=== PATIENT | male | born 1990 | race Caucasian/White ===

== ENCOUNTER 2017-03-01 10:19 | Inpatient (IN) | payer OTHER ==
[~2017-03-01] VITALS: Ht 175.3 cm; Wt 74.8 kg
[~2017-03-01 10:19] MED LIST: LEVE500T13 PO
[2017-03-01] MEDS ORDERED: SODIUM CHLORIDE 0.9% 1000ML 1,000 ML IV STA ×2 (10:50)
[2017-03-01] MEDS ORDERED: LORAZEPAM 2 MG/ML 1 ML VIAL IV STA (10:50)
[2017-03-01] MEDS ORDERED: LEVETIRACETAM IV 1,000 MG in DEXTROSE 5% 100ML 100 ML IV STA (10:50)
--- NOTE | 2017-03-01 10:57 | EMERGENCY ROOM VISIT NOTE ---
History Report prepared by Maryann: Lubna Hoffman Under the Supervision of: Dr. Kevin Keita M.D. First contact with patient: 10:44 Chief Complaint: SEIZURE Stated Complaint: SEIZURE, POSSIBLE HEAD INJURY Nursing Triage Summary: Triage note: mother reports "he has a hx of seizures and had three this morning since 529 today two were in bed and one he was in the bathroom and he fell, i think something is wrong with his head he is not acting right." pt answering questions in triage but is slow to respond pt able to report name and where he is and why but is unable to report month or season pt reports "it' s summer i think i have no idea." pt speaks micronesian and yoruba and pt denies need for chemist. mother also denies need for chemist. History of Present Illness The patient is a 26 year old male who presents to the Emergency Room with complaints of three sudden seizures that occurred prior to arrival. He currently rates his discomfort as a 5/10 in severity. The patient notes that he has a history of seizures, noting that he takes two 500 mg of Keppra daily. He notes that he hit his head during one of the seizures. The patient's mother notes that the patient's seizures lasted 3 minutes each. The patient notes that he bit his tongue during the event, but denies any incontinence. The patient's mother states that the patient's last seizure was several months ago. The patient's mother notes that the patient follows with Dr. Hartmann of Neurology. She notes that the patient wasn't feeling well yesterday. The patient's mother notes that the patient was slow to respond yesterday and had complained of blurry vision. The patient's mother states that the patient did not take his Keppra this morning. Per records, the patient was started on Keppra in May 2016 for his seizures. The patient denies any other active medical problems. The patient believes that his tetanus status is up to date. The patient reports medication compliance. Source of History: patient, parent (mother), other (records) Onset: prior to arrival Position: other (global) Symptom Intensity: 5/10 Quality: other (seizures) Timing: other (three sudden) Note: Associated Symptoms: slow to respond yesterday, blurry vision Review of Systems See HPI for pertinent positives & negatives. A total of 10 systems reviewed and were otherwise negative. Past Medical & Surgical Medical Problems: (1) Hand laceration (2) Pneumothorax, closed, traumatic Family History Hypertension Social History Smoking Status: Never Smoker Alcohol Use: occasionally Drug Use: none Marital Status: single Housing Status: lives with family Current/Historical Medications Scheduled Levetiracetam (Keppra), 500 MG PO BID Allergies Coded Allergies: No Known Allergies (Unverified , 03/01/17) Physical Exam Vital Signs Date Time Temp Pulse Resp B/P Pulse Ox O2 Delivery O2 Flow Rate FiO2 03/01/17 12:03 84 15 138/69 99 Room Air 03/01/17 10:41 85 03/01/17 10:33 96 Room Air 03/01/17 10:33 85 16 143/85 97 Room Air 03/01/17 10:20 37.4 102 18 135/89 98 Room Air Physical Exam GENERAL: Patient is in no acute distress. HEENT: Mucous membranes are moist, abrasion to nasal bridge with subtle nasal deformity, abrasion to the left forehead, no scalp hematoma, pupils are equal and reactive to light. Bite to the right side of the tongue. NECK: No stridor, no adenopathy, no meningismus, trachea is midline. LUNGS: Clear to auscultation bilaterally, no wheeze, no rhonchi, breath sounds equal. HEART: Without murmurs gallops or rubs, regular rate and rhythm. ABDOMEN: Soft, nontender, bowel sounds positive, no hernias, no peritonitis. BACK: Abrasion to right thoracic back. EXTREMITIES: No cyanosis or edema, full range of motion of all the joints without pain or difficulty, no signs for acute trauma. NEUROLOGIC: Slow to respond, appears slightly confused, moving all extremities, awake and alert SKIN: No rash, no jaundice, no diaphoresis. Medical Decision & Procedures ER Provider Diagnostic Interpretation: X ray results and stated below per my interpretation and radiologist interpretation. Other radiology results and stated below per my review and radiologist interpretation: CT HEAD WITHOUT CONTRAST (CT) CLINICAL HISTORY: Seizure. Altered mental status. Head trauma. COMPARISON STUDY: 04/30/2011 TECHNIQUE: Axial CT of the brain is performed from the vertex to the skull base. IV contrast was not administered for this examination. CT DOSE: 729.78 mGycm FINDINGS: No intra or extra-axial mass lesions are visualized. There is no CT evidence of acute cortical infarction. There is no evidence of midline shift. There is no acute hemorrhage. No calvarial fractures are visualized. There is left frontal scalp edema. There is no evidence of pathologic ventricular dilatation. There is a very subtle linear white matter hypodensity with thin the right parietal white matter. This is not felt to be acute and likely relates to an old insult There is no evidence of acute sinusitis. There is an age-indeterminate left nasal bone deformity. IMPRESSION: 1. Left frontal scalp edema 2. Age-indeterminate left nasal bone deformity 3. No evidence of acute intracranial injury Electronically signed by: Kevin Lagos M.D. 03/01/2017 12:04 PM Dictated Date/Time: 03/01/2017 12:01 PM CHEST ONE VIEW PORTABLE HISTORY: EVALUATE ALTERED MENTAL STATUS/WEAKNESS COMPARISON: Chest 05/08/2011. FINDINGS: The lungs are clear. Cardiac silhouette is normal in size. No pleural effusions. No pneumothorax. IMPRESSION: No acute process. Electronically signed by: Shimon Monroe M.D. 03/01/2017 11:16 AM Dictated Date/Time: 03/01/2017 11:[address] SCAN OF THE FACIAL BONES WITHOUT IV CONTRAST CLINICAL HISTORY: Trauma. Left facial bruising. COMPARISON STUDY: CT of the brain performed concurrently on 03/01/2017. TECHNIQUE: High-resolution CT scan of the facial bones is performed. Images are reviewed in the axial, sagittal, and coronal planes. IV contrast was not administered for this examination. CT DOSE: 589.43 mGycm FINDINGS: The skeletal structures are well mineralized. There is no evidence of facial bone fracture. The bony orbits are intact and the orbital contents are within normal limits. The zygomatic arches, nasal bones, and pterygoid plates are preserved. The maxilla and mandible are intact. There are no layering blood products within the paranasal sinuses. The sinuses and mastoids are clear. The visualized calvarium and upper cervical spine are maintained. Partially imaged brain parenchyma is within normal limits. There are large dental caries identified involving the right mandibular molars. Smaller caries are seen involving left mandibular molars and the right lateral mandibular incisor. There are large caries identified involving the bilateral maxillary molars. There is a left frontal and left periorbital scalp contusion. IMPRESSION: 1. There is no evidence of facial bone fracture. 2. Left frontal/periorbital scalp contusion. 3. There are numerous maxillary and mandibular dental caries. Follow-up with dentistry is recommended. Electronically signed by: Kevin Waldron M.D. 03/01/2017 12:12 PM Dictated Date/Time: 03/01/2017 12:06 PM Laboratory Results 03/01/17 10:50 Red Blood Count 4.79, Mean Corpuscular Volume 91.6, Mean Corpuscular Hemoglobin 31.1, Mean Corpuscular Hemoglobin Concent 33.9, Mean Platelet Volume 9.4, Neutrophils (%) (Auto) 88.5, Lymphocytes (%) (Auto) 3.8, Monocytes (%) (Auto) 7.5, Eosinophils (%) (Auto) 0.0, Basophils (%) (Auto) 0.0, Neutrophils # (Auto) 10.60, Lymphocytes # (Auto) 0.45, Monocytes # (Auto) 0.90, Eosinophils # (Auto) 0.00, Basophils # (Auto) 0.00 03/01/17 10:50 Test 03/01/17 10:50 White Blood Count 11.97 K/uL (4.8-10.8) Red Blood Count 4.79 M/uL (4.7-6.1) Hemoglobin 14.9 g/dL (14.0-18.0) Hematocrit 43.9 % (42-52) Mean Corpuscular Volume 91.6 fL (80-100) Mean Corpuscular Hemoglobin 31.1 pg (25-34) Mean Corpuscular Hemoglobin Concent 33.9 g/dl (32-36) Platelet Count 202 K/uL (130-400) Mean Platelet Volume 9.4 fL (7.4-10.4) Neutrophils (%) (Auto) 88.5 % Lymphocytes (%) (Auto) 3.8 % Monocytes (%) (Auto) 7.5 % Eosinophils (%) (Auto) 0.0 % Basophils (%) (Auto) 0.0 % Neutrophils # (Auto) 10.60 K/uL (1.4-6.5) Lymphocytes # (Auto) 0.45 K/uL (1.2-3.4) Monocytes # (Auto) 0.90 K/uL (0.11-0.59) Eosinophils # (Auto) 0.00 K/uL (0-0.5) Basophils # (Auto) 0.00 K/uL (0-0.2) RDW Standard Deviation 45.4 fL (36.4-46.3) RDW Coefficient of Variation 13.6 % (11.5-14.5) Immature Granulocyte % (Auto) 0.2 % Immature Granulocyte # (Auto) 0.02 K/uL (0.00-0.02) Anion Gap 8.0 mmol/L (3-11) Est Creatinine Clear Calc Drug Dose 103.6 ml/min Estimated GFR () 108.3 Estimated GFR (Non- 93.5 BUN/Creatinine Ratio 12.8 (10-20) Calcium Level 8.5 mg/dl (8.5-10.1) Total Bilirubin 1.2 mg/dl (0.2-1) Aspartate Amino Transf (AST/SGOT) 34 U/L (15-37) Alanine Aminotransferase (ALT/SGPT) 35 U/L (12-78) Alkaline Phosphatase 75 U/L (45-117) Total Creatine Kinase 782 U/L (39-308) Total Protein 8.1 gm/dl (6.4-8.2) Albumin 4.4 gm/dl (3.4-5.0) Globulin 3.7 gm/dl (2.5-4.0) Albumin/Globulin Ratio 1.2 (0.9-2) Thyroid Stimulating Hormone (TSH) 1.900 uIu/ml (0.300-4.500) Laboratory results reviewed by me. Medications Administered Medications (Trade) Dose Ordered Sig/Bobbi Route Start Time Stop Time Status Last Admin Dose Admin Sodium Chloride 1,000 ml @ 999 mls/hr Q1H1M STAT IV 03/01/17 10:50 03/01/17 11:50 DC 03/01/17 11:04 999 MLS/HR Sodium Chloride (Nss 1000ml) 1,000 ml @ 200 mls/hr Q5H STAT IV 03/01/17 10:50 03/01/17 14:50 DC 03/01/17 12:05 200 MLS/HR Lorazepam 1 mg 1 mg NOW STAT IV 03/01/17 10:50 03/01/17 10:54 DC 03/01/17 10:59 1 MG Levetiracetam/ Dextrose (Keppra Iv/D5 100ml) 110 ml @ 420 mls/hr NOW STAT IV 03/01/17 10:50 03/01/17 11:05 DC 03/01/17 11:04 420 MLS/HR ECG Indication: other (seizure) Rate (beats per minute): 93 Rhythm: normal sinus Findings: no acute ischemic change, no ectopy ED Course 1044: The patient was evaluated in room C9. A complete history and physical exam was performed. 1050: Ordered Levetiracetam 1000 mg/Dextrose 110 ml @ 420 mls/hr IV, Ativan Inj 1 mg IV, Sodium Chloride 1000 ml @ 200 mls/hr IV, Sodium Chloride 1000 ml @ 999 mls/hr IV. 1230: I discussed the patients case with Dr. Hartmann, Neurology. He states that if the patient has a negative work up and back to baseline, he can go home and follow up in the office. He states that if the patient is still not back to baseline, then he should be evaluated in the hospital further. 1244: I reevaluated the patient and he is sleepy. I talked with his mother and she is going to talk to the patient and see if he is back to baseline yet. 1321: I reevaluated the patient and he is still not back to baseline. I discussed all the exam findings with him and his mother and I discussed the treatment plan. They verbalized complete understanding and agreement. The patient will be evaluated for further treatment. 1323: I discussed the patients case with Dr. Godinez, [facility] [place], [place]. He is going to evaluate the patient for further treatment. Medical Decision The patient is a 26 year old male who presents to the ED with complaints of a seizure. Differential diagnoses considered include Low Keppra level, medication noncompliance, facial or skull fracture, intracranial bleeding, infection, electrolyte imbalance, dehydration. There is a mild leukocytosis which could be consistent with infection or just the seizure activity itself. No concerning anemia. No significant electrolyte abnormality, kidney failure or hepatitis. The patient appears to be in a euthyroid state. Urine tox shows methadone and marijuana. Keppra level is of course still pending. Brain CT shows no acute bleed or mass effect. Facial CT does not show any worrisome facial fracture, a potential subtle acute or subacute injury/fracture to the nose was suggested. Chest x-ray does not show pneumonia or mediastinal widening. Urinalysis shows dehydration, no obvious infection. The patient received IV saline, IV Ativan and IV Keppra. He has done well but he is still slightly confused and I do not think stable for discharge home. I discussed the case with Dr. Hartmann of neurology. Since the patient is still somewhat confused, he will be brought into the hospital for further care. I am concerned about medication noncompliance with this patient. Consults Time Called: 1225 Consulting Physician: Dr. Hartmann, Neurology Returned Call: 1230 I discussed the patients case with Dr. Hartmann, Neurology. He states that if the patient has a negative work up and back to baseline, he can go home and follow up in the office. He states that if the patient is still not back to baseline, then he should be evaluated in the hospital further. Additional Consults: Time Called: 1321 Consulted Physician: FARTUN Dee Returned Call: 132 Additional Comments: I discussed the patients case with FARTUN Dee. He is going to evaluate the patient for further treatment. Impression Primary Impression: Seizure Additional Impression: Head trauma Scribe Attestation The scribe's documentation has been prepared under my direction and personally reviewed by me in its entirety. I confirm that the note above accurately reflects all work, treatment, procedures, and medical decision making performed by me. Departure Information Dispostion Being Evaluated By Hospitalist Referrals No Doctor, Assigned (PCP) Problem Qualifiers
[2017-03-01] MEDS ORDERED: LEVE500T13 PO (11:01)
[2017-03-01 11:02] LABS: COMPLETE YES; HEMATOCRIT 43.9 % (42-52); IG% 0.2 %; LYMPH % 3.8 %; LYMPH ABS # 0.45 K/uL (1.2-3.4); MEAN CELL VOLUME 91.6 fL (80-100); MEAN CORPUSCULAR HEMOGLOBIN 31.1 pg (25-34); MEAN CORPUSCULAR HGB CONC 33.9 g/dl (32-36); MEAN PLATELET VOLUME 9.4 fL (7.4-10.4); MONO % 7.5 %; NEUT % 88.5 %; PLATELET COUNT 202 K/uL (130-400); RED BLOOD COUNT 4.79 M/uL (4.7-6.1); WHITE BLOOD COUNT 11.97 K/uL (4.8-10.8)
--- NOTE | 2017-03-01 11:18 | DIAGNOSTIC IMAGING REPORT ---
CHEST ONE VIEW PORTABLE HISTORY: EVALUATE ALTERED MENTAL STATUS/WEAKNESS COMPARISON: Chest 05/08/2011. FINDINGS: The lungs are clear. Cardiac silhouette is normal in size. No pleural effusions. No pneumothorax. IMPRESSION: No acute process. Electronically signed by: Shimon Monroe M.D. 03/01/2017 11:16 AM Dictated Date/Time: 03/01/2017 11:12 AM
[2017-03-01 11:27] LABS: ALB/GLOB RATIO 1.2 (0.9-2); BUN/CREATININE RATIO 12.8 (10-20); CALCIUM 8.5 mg/dl (8.5-10.1); CREATININE 1.1 mg/dl (0.60-1.40); POTASSIUM 4.3 mmol/L (3.5-5.1)
[2017-03-01 11:32] LABS: THYROID STIMULATING HORMONE 1.9 uIu/ml (0.300-4.500)
--- NOTE | 2017-03-01 12:06 | DIAGNOSTIC IMAGING REPORT ---
CT HEAD WITHOUT CONTRAST (CT) CLINICAL HISTORY: Seizure. Altered mental status. Head trauma. COMPARISON STUDY: 04/30/2011 TECHNIQUE: Axial CT of the brain is performed from the vertex to the skull base. IV contrast was not administered for this examination. CT DOSE: 729.78 mGycm FINDINGS: No intra or extra-axial mass lesions are visualized. There is no CT evidence of acute cortical infarction. There is no evidence of midline shift. There is no acute hemorrhage. No calvarial fractures are visualized. There is left frontal scalp edema. There is no evidence of pathologic ventricular dilatation. There is a very subtle linear white matter hypodensity with thin the right parietal white matter. This is not felt to be acute and likely relates to an old insult There is no evidence of acute sinusitis. There is an age-indeterminate left nasal bone deformity. IMPRESSION: 1. Left frontal scalp edema 2. Age-indeterminate left nasal bone deformity 3. No evidence of acute intracranial injury Electronically signed by: Kevin Lagos M.D. 03/01/2017 12:04 PM Dictated Date/Time: 03/01/2017 12:01 PM
--- NOTE | 2017-03-01 12:14 | DIAGNOSTIC IMAGING REPORT ---
CT SCAN OF THE FACIAL BONES WITHOUT IV CONTRAST CLINICAL HISTORY: Trauma. Left facial bruising. COMPARISON STUDY: CT of the brain performed concurrently on 03/01/2017. TECHNIQUE: High-resolution CT scan of the facial bones is performed. Images are reviewed in the axial, sagittal, and coronal planes. IV contrast was not administered for this examination. CT DOSE: 589.43 mGycm FINDINGS: The skeletal structures are well mineralized. There is no evidence of facial bone fracture. The bony orbits are intact and the orbital contents are within normal limits. The zygomatic arches, nasal bones, and pterygoid plates are preserved. The maxilla and mandible are intact. There are no layering blood products within the paranasal sinuses. The sinuses and mastoids are clear. The visualized calvarium and upper cervical spine are maintained. Partially imaged brain parenchyma is within normal limits. There are large dental caries identified involving the right mandibular molars. Smaller caries are seen involving left mandibular molars and the right lateral mandibular incisor. There are large caries identified involving the bilateral maxillary molars. There is a left frontal and left periorbital scalp contusion. IMPRESSION: 1. There is no evidence of facial bone fracture. 2. Left frontal/periorbital scalp contusion. 3. There are numerous maxillary and mandibular dental caries. Follow-up with dentistry is recommended. Electronically signed by: Kevin Waldron M.D. 03/01/2017 12:12 PM Dictated Date/Time: 03/01/2017 12:06 PM
[2017-03-01 13:45] VITALS: O2SAT 95; Ht 175.3 cm; Wt 74.8 kg
[2017-03-01] MEDS ORDERED: ACETAMINOPHEN 325 MG TAB PO PRN (13:45)
[2017-03-01] MEDS ORDERED: ONDANSETRON INJ 2 MG/ML 2 ML VIAL IV PRN (13:45)
[2017-03-01] MEDS ORDERED: LORAZEPAM 2 MG/ML 1 ML VIAL IV PRN (13:45)
[2017-03-01] MEDS ORDERED: LORAZEPAM INJ 1 MG in SYRINGE 0.5 ML IV PRN (14:00)
--- NOTE | 2017-03-01 14:13 | History and Physical ---
History & Physical Date & Time of Service: Mar 01, 2017 at 13:58 Chief Complaint: Seizure, Possible Head Injury Primary Care Physician: No Doctor, Assigned History of Present Illness Source: patient, family, hospital records 26 yo male with history of epilepsy for several years, presents to the ED today after having three successive seizures at home with injury to his chest and face from falling. The first seizure occurred when he woke up and then he had a second seizure that his mom believe lasted 15 minutes before stopping. He had a third seizure while in the bathroom and fell forward and struck his face/ nose. He was brought to the ED and given Ativan IV, has not had a seizure since coming to the ED. Asked patient if he had any warning signs of seizure and he denied. He went to bed around 1am, did not have any sleep deprivation. No drugs. No recent infections. There has been some confusion about his dose of Keppra. The patient and the patient's mother say that they saw the PA at the neurologist office and they were told that he should take Keppra 500mg, can take either at night or morning , as long as he was taking. Patient's memory is not great after having seizures but he says he has been taking the Keppra. Review of outpatient notes shows that he did she Brittany Case PA with neurology on January 14, he was having issues with non-compliance at that time. Was prescribed Keppra ER 500mg and told to take two tablets in the morning. Suspect that patient continues to be non-compliant. Keppra level sent off but is a reference lab. Past Medical/Surgical History Epilepsy - started several years ago Family History Hypertension Social History Smoking Status: Never Smoker Drug Use: none Marital Status: single Multi-Drug Resistant Organisms History of MDRO: No Allergies Coded Allergies: No Known Allergies (Unverified , 03/01/17) Home Medications Scheduled Levetiracetam (Keppra), 500 MG PO BID Review of Systems Constitutional: No chills, No fatigue, No fever, No problem reported, No sweats , No weakness, No weight loss Eyes: No diplopia, No discharge, No eye pain, No problem reported, No redness, No worsening of vision ENT: + problem reported (nasal bone pain), No dental problems, No hearing loss , No nasal symptoms, No sore throat, No tinnitus, No trouble swallowing, No unusual epistaxis Respiratory: No cough, No dyspnea at rest, No dyspnea on exertion, No hemoptysis, No problem reported, No shortness of breath, No sputum, No wheezing Cardiovascular: + chest pain (from fall), No PND, No claudication, No edema, No orthopnea, No palpitations, No problem reported Abdomen: No GI bleeding, No constipation, No diarrhea, No nausea, No pain, No problem reported, No vomiting Musculoskeletal: + muscle pain (generalized, from seizures), No joint pain, No swelling Genitourinary - Male: No dysuria, No hematuria, No urinary frequency, No urinary urgency Neurologic: + memory loss (surrounding time of seizures), + problem reported ( three seizures this AM), + weakness (diffuse, post ictal), No balance problems, No numbness/tingling, No paralysis, No vertigo Psychiatric: No anhedonism, No anxiety, No depression symptoms, No insomnia, No problem reported, No substance abuse Endocrine: No excessive thirst, No excessive urination, No fatigue, No problem reported Hematologic / Lymphatic: No abnormal bleeding/bruising, No clotting problems, No night sweats, No problem reported, No swollen lymph nodes Integumentary: No bleeding, No color change, No itch, No new/changing skin lesions, No problem reported, No rash Allergic / Immunologic: No environmental allergies, No food allergies, No frequent infections, No hives, No pet sensitivities, No poor healing, No problem reported, No prolonged convalescence, No seasonal allergies Physical Exam Vital Signs Date Time Temp Pulse Resp B/P Pulse Ox O2 Delivery O2 Flow Rate FiO2 03/01/17 13:40 98 22 125/69 95 Room Air 03/01/17 12:03 84 15 138/69 99 Room Air 03/01/17 10:41 85 03/01/17 10:33 96 Room Air 03/01/17 10:33 85 16 143/85 97 Room Air 03/01/17 10:20 37.4 102 18 135/89 98 Room Air General Appearance: WD/WN, no apparent distress Head: normocephalic, + evidence of trama (nasal bones and left forehead laceration/abrasion) Eyes: normal inspection, EOMI, sclerae normal, + pertinent finding (pupils dilated, minimall reactive) ENT: hearing grossly normal, TMs normal, pharynx normal, + pertinent finding ( nasal bones tender, bruised) Neck: supple, no adenopathy, no JVD, trachea midline Respiratory/Chest: chest non-tender, lungs clear, normal breath sounds, no respiratory distress, no accessory muscle use Cardiovascular: regular rate, rhythm, no edema, no gallop, no JVD, no murmur, normal peripheral pulses Abdomen/GI: normal bowel sounds, non tender, soft, no organomegaly Back: normal inspection, no CVA tenderness, no muscle spasm, normal range of motion Extremities/Musculoskelatal: normal inspection, no calf tenderness, normal capillary refill, no pedal edema, normal range of motion Neurologic/Psych: flux tube attendant II-XII nml as tested, no motor/sensory deficits, alert, normal reflexes, oriented x 3, + pertinent finding (lethargic but wakes up to answer questions appropriately) Skin: normal color, warm/dry, no rash Diagnostics Laboratory Results Results Past 24 Hours Test 03/01/17 10:50 Range/Units White Blood Count 11.97 4.8-10.8 K/uL Red Blood Count 4.79 4.7-6.1 M/uL Hemoglobin 14.9 14.0-18.0 g/dL Hematocrit 43.9 42-52 % Mean Corpuscular Volume 91.6 80-100 fL Mean Corpuscular Hemoglobin 31.1 25-34 pg Mean Corpuscular Hemoglobin Concent 33.9 32-36 g/dl Platelet Count 202 130-400 K/uL Mean Platelet Volume 9.4 7.4-10.4 fL Neutrophils (%) (Auto) 88.5 % Lymphocytes (%) (Auto) 3.8 % Monocytes (%) (Auto) 7.5 % Eosinophils (%) (Auto) 0.0 % Basophils (%) (Auto) 0.0 % Neutrophils # (Auto) 10.60 1.4-6.5 K/uL Lymphocytes # (Auto) 0.45 1.2-3.4 K/uL Monocytes # (Auto) 0.90 0.11-0.59 K/uL Eosinophils # (Auto) 0.00 0-0.5 K/uL Basophils # (Auto) 0.00 0-0.2 K/uL RDW Standard Deviation 45.4 36.4-46.3 fL RDW Coefficient of Variation 13.6 11.5-14.5 % Immature Granulocyte % (Auto) 0.2 % Immature Granulocyte # (Auto) 0.02 0.00-0.02 K/uL Sodium Level 139 136-145 mmol/L Potassium Level 4.3 3.5-5.1 mmol/L Chloride Level 105 98-107 mmol/L Carbon Dioxide Level 26 21-32 mmol/L Anion Gap 8.0 3-11 mmol/L Blood Urea Nitrogen 14 7-18 mg/dl Creatinine 1.10 0.60-1.40 mg/dl Est Creatinine Clear Calc Drug Dose 103.6 ml/min Estimated GFR () 108.3 Estimated GFR (Non- 93.5 BUN/Creatinine Ratio 12.8 10-20 Random Glucose 82 70-99 mg/dl Calcium Level 8.5 8.5-10.1 mg/dl Total Bilirubin 1.2 0.2-1 mg/dl Aspartate Amino Transf (AST/SGOT) 34 15-37 U/L Alanine Aminotransferase (ALT/SGPT) 35 12-78 U/L Alkaline Phosphatase 75 45-117 U/L Total Creatine Kinase 782 39-308 U/L Total Protein 8.1 6.4-8.2 gm/dl Albumin 4.4 3.4-5.0 gm/dl Globulin 3.7 2.5-4.0 gm/dl Albumin/Globulin Ratio 1.2 0.9-2 Thyroid Stimulating Hormone (TSH) 1.900 0.300-4.500 uIu/ml Microbiology Results 03/01/17 Blood Culture, Received Pending 03/01/17 Blood Culture, Received Pending Diagnostic Radiology CT head IMPRESSION: 1. Left frontal scalp edema 2. Age-indeterminate left nasal bone deformity 3. No evidence of acute intracranial injury CT facial bones IMPRESSION: 1. There is no evidence of facial bone fracture. 2. Left frontal/periorbital scalp contusion. 3. There are numerous maxillary and mandibular dental caries. Follow-up with dentistry is recommended. CXR normal Impression Assessment and Plan 26 yo male with history of epilepsy, presents after having three seizures this AM, h/o non-compliance on Keppra - Epilepsy with seizures: likely caused by poor compliance with Keppra, supposed to be on Keppra ER 1000mg daily no seizures here in the ED after Ativan given will place on Keppra 1000mg IV BID, send off Keppra leval, Ativan 1mg IV PRN seizure activity seizure precautions consult Dr. Hartmann CK up at 700 due to seizures facial bone fracture, small, non-displaced normal electrolytes, no signs of infection, denies drug use, no sleep deprivation - DVT prophylaxis: Lovenox Level of Care Med/Surg VTE Prophylaxis VTE Risk Assessment Done? Y/N: Yes Risk Level: Low Given or contraindicated: Enoxaparin (Lovenox)SQ Additional Copies To Noel, Brittany Sethi
[2017-03-01 14:42] LABS: URINE APPEARANCE CLEAR (CLEAR); URINE BILIRUBIN NEG (NEG); URINE COLOR YELLOW; URINE NITRITE NEG (NEG); UROBILINOGEN NEG (NEG); ZZUR CULT IF INDIC CLEAN CATCH NO
[2017-03-01 14:44] VITALS: BP 125/69; PULSE 90; TEMP 37.2; O2SAT 97
[2017-03-01 14:53] LABS: MANUAL MICROSCOPIC REQUIRED? NO; REVIEW REQ? NO
[2017-03-01 15:21] LABS: BENZODIAZEPINE, URINE NEG (NEG); COCAINE,URINE NEG (NEG); PHENCYCLIDINE, URINE NEG (NEG)
[2017-03-01] MEDS: LEVETIRACETAM IV 1,000 MG in DEXTROSE 5% 100ML 100 ML IV SCH (20:10)
[2017-03-01 23:59] VITALS: BP 114/72; PULSE 97; TEMP 36.7; O2SAT 98
[2017-03-02 07:26] VITALS: BP 121/68; PULSE 65; TEMP 36.8; O2SAT 96
[2017-03-02] MEDS ORDERED: ENOXAPARIN 40 MG/0.4 ML SYR SQ SCH (08:00)
[2017-03-02] MEDS: LEVETIRACETAM IV 1,000 MG in DEXTROSE 5% 100ML 100 ML IV SCH (08:05)
--- NOTE | 2017-03-02 11:21 | Neurology Consultation ---
Neurology Consultation Date of Consultation: Mar 02, 2017. Attending Physician: Andrea Godinez D.O. Primary Care Physician: No Doctor, Assigned Reason for Consultation: Patient is a 26-year-old was asked to see the request of Dr. Godinez for neurologic consultation regarding seizures History of Present Illness Source: patient, caregiver, clinic records, hospital records Patient started getting seizures in 2007. He did not have developmental delays , head trauma or meningitis or seizures as an infant or child. He's had intermittent seizures ever since. He has had multiple seizure types over the years. Sometimes he has right-sided numbness and other symptomatology with good recall and no alteration in consciousness or responsiveness. Other times he can have right-sided symptoms with unresponsiveness and chewing movements of the mouth. Finally, he can have generalized tonic-clonic events. All of these last 30 seconds to a minute and he can have some post event confusion. Patient was first seen by Dr. Hartmann in January 2014. He had an MRI of the brain with and without contrast which was unremarkable. An EEG showed some left-sided /parietal slowing of a nonspecific nature and no potentially epileptogenic activity. He was put on Keppra at that time. Patient saw Dr. Gary Sesay, epileptic I'll just at [facility], in May 2014. At that time, he underwent a 3T MRI of the brain with and without contrast which was unremarkable. He had no underlying temporal lobe or other abnormalities. A 24-hour ambulatory EEG was unremarkable as well, although he did not have any spells during that time. They recommended 1250 mg of Keppra twice a day. Over the years, the patient has been extremely noncompliant with taking medication. In addition, he consumes alcohol intermittently and regularly as well as drug use. There is a note in the chart that over 1000 mg a day he can have side effects to Keppra, but the patient cannot remember this nor can he be very specific. He continues to have occasional breakthrough seizures, less so when he takes the medication regularly. He was last seen in neurology clinic in January 2017. Just had a generalized tonic-clonic seizure. On March 01, the patient woke up feeling fine but had 3 separate seizures lasting 3 minutes each. On the second one he had hit his left forehead and bit his tongue. There is no incontinence of urine. He arrived in the emergency room on March 01 at 1020 hours with a temperature 37.4, pulse 102, respiratory rate 18, blood pressure 135, and O2 saturation 98% . He was described in the emergency room is somewhat slow and perhaps confused. He had no focal neurologic deficits otherwise. CT scan of the head showed left frontal scalp edema with no intracranial problems. Chest x-ray was unremarkable. CT scan of the facial bones showed no fracture. Chem profile, CBC, TSH were unremarkable. Urinalysis reveals positive methadone and marijuana. The patient states he took liquid methadone earlier in the week and occasionally obtains and takes methadone pills. Currently, the patient feels back to normal with no headache, neck pain, pain, weakness, or numbness in the limbs, vision problems, confusion, or balance issues. His tongue hurts from where he put it on the left side. Nursing reports no seizures since admission. Past Medical/Surgical History Medical Problems: (1) Encounter for removal of sutures Status: Acute (2) Head trauma Status: Acute (3) Seizure Status: Acute (4) Seizure disorder Status: Acute Patient has no history of heart disease, hypertension, diabetes, asthma, or ulcer disease. He reports no surgical history but may of had his wisdom teeth removed (he is not sure) Family History Mother, age 49, has no significant medical problems. Father in his 30s after being hit by a car Social History Patient has never smoked cigarettes. He chews tobacco, at a rate of a can about every 4 days. He will have about 3 drinks of alcohol per week. His drug use as noted above. 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 Smoking Status: Never smoker Smokeless Tobacco Use: Yes Alcohol Use: occasionally Drug Use: marijuana, other Marital Status: single Housing Status: lives with family Occupation Status: employed Allergies Coded Allergies: No Known Allergies (Unverified , 03/01/17) Current Inpatient Medications Current Inpatient Medications Medications (Trade) Dose Ordered Sig/Bobbi Route Start Time Stop Time Status Last Admin Dose Admin Acetaminophen (Tylenol Tab) 650 mg Q4H PRN PO 03/01/17 13:45 03/31/17 13:44 Ondansetron HCl 4 mg 4 mg Q6H PRN IV 03/01/17 13:45 03/31/17 13:44 Levetiracetam/ Dextrose (Keppra Iv/D5 100ml) 110 ml @ 440 mls/hr BID IV 03/01/17 20:00 03/31/17 20:59 03/02/17 08:05 440 MLS/HR Lorazepam 1 mg 1 mg Q2H PRN IV 03/01/17 13:45 03/31/17 13:44 Lorazepam/Syringe (Ativan Inj/ Syringe) 1 ml @ 1 mls/min Q2H PRN IV 03/01/17 14:00 03/31/17 13:59 Enoxaparin Sodium (Lovenox Inj) 40 mg QAM SQ 03/02/17 08:00 04/01/17 08:59 Review of Systems Constitutional: No fatigue, No weakness Eyes: No diplopia, No worsening of vision ENT: No hearing loss, No tinnitus Respiratory: No cough, No shortness of breath Cardiovascular: No chest pain, No palpitations Abdomen: No nausea, No pain Musculoskeletal: No joint pain, No muscle pain Genitourinary - Male: No dysuria, No urinary incontinence Neurologic: No memory loss, No numbness/tingling, No weakness Psychiatric: No anxiety, No depression symptoms Endocrine: No fatigue Hematologic / Lymphatic: No abnormal bleeding/bruising Integumentary: No rash Allergic / Immunologic: No hives Physical Exam Vital Signs (Past 24 Hrs): Date Time Temp Pulse Resp B/P Pulse Ox O2 Delivery O2 Flow Rate FiO2 03/02/17 08:00 Room Air 03/02/17 07:26 36.8 65 18 121/68 96 Room Air 03/02/17 00:00 Room Air 03/01/17 23:59 36.7 97 20 114/72 98 Room Air 03/01/17 16:20 Room Air 03/01/17 14:44 37.2 90 18 125/69 97 Room Air 03/01/17 13:45 95 Room Air 03/01/17 13:40 98 22 125/69 95 Room Air 03/01/17 12:03 84 15 138/69 99 Room Air Patient is right-handed. The patient is awake and alert. Speech is normal without aphasia or dysarthria. Mentation and thought processes are intact with orientation and normal fund of knowledge. Mood and affect are normal and appropriate. Appearance and grooming are normal. The discs are sharp with positive venous pulsations. Pupils are 4mm bilaterally and reactive to light. Extraocular eye muscles are intact without nystagmus. Visual acuity and visual hernandez seem normal grossly to confrontation. There are no deficits to sensation of the face bilaterally. Corneal reflexes are positive bilaterally. Facial strength and symmetry is normal bilaterally. Hearing seems intact grossly to voice and finger rub. Palate moves well without asymmetry. There is normal sternocleidomastoid and trapezius strength bilaterally. Tongue is midline with good strength bilaterally. Neck is with full range of motion without discomfort. There are no cervical bruits. There are no cranial or ocular bruits. Heart is without murmur. Cervical, thoracic, and lumbar spine are nontender to palpation. Gait is normal. There is good are swing, turn, stance, and balance. Stance is normal eyes open or closed. With outstretched arms there is no drift. There are no resting, postural, or action tremors. There is no ataxia with [id number] testing. There is good facility in the hands. There are no abnormal involuntary movements noted. Motor strength is 5/5 diffusely in the arms bilaterally including deltoids, biceps, brachioradialis, wrist flexors and extensors, hand loom weaver, and intrinsic hand muscles. Motor strength is 5/5 diffusely in the legs bilaterally including hip flexors, quadriceps, hamstring, gastrocnemius, tibialis anterior, tibialis posterior, and peroneii muscles bilaterally. Toe extensors are normal and there is good bulk in the extensor digitorum brevis muscle bilaterally. The limbs have good tone without rigidity or spasticity, and there is no atrophy noted. Muscle bulk is normal, there is no tenderness, no myotonia noted to percussion, and no fasciculations seen. Sensory examination is intact to pin and touch throughout all four limbs. Reflexes are 1/4 in the biceps, triceps, brachioradialis, quadriceps, and Achilles tendons bilaterally. Toes are downgoing with plantar stimulation bilaterally. Peripheral pulses are present and of normal quality distally in all four limbs. There is no peripheral edema noted. Laboratory Results Past 24 Hours: 03/01/17 10:50 Red Blood Count 4.79, Mean Corpuscular Volume 91.6, Mean Corpuscular Hemoglobin 31.1, Mean Corpuscular Hemoglobin Concent 33.9, Mean Platelet Volume 9.4, Neutrophils (%) (Auto) 88.5, Lymphocytes (%) (Auto) 3.8, Monocytes (%) (Auto) 7.5, Eosinophils (%) (Auto) 0.0, Basophils (%) (Auto) 0.0, Neutrophils # (Auto) 10.60, Lymphocytes # (Auto) 0.45, Monocytes # (Auto) 0.90, Eosinophils # (Auto) 0.00, Basophils # (Auto) 0.00 03/01/17 10:50 Test 03/01/17 10:50 03/01/17 14:05 White Blood Count 11.97 K/uL (4.8-10.8) Red Blood Count 4.79 M/uL (4.7-6.1) Hemoglobin 14.9 g/dL (14.0-18.0) Hematocrit 43.9 % (42-52) Mean Corpuscular Volume 91.6 fL (80-100) Mean Corpuscular Hemoglobin 31.1 pg (25-34) Mean Corpuscular Hemoglobin Concent 33.9 g/dl (32-36) Platelet Count 202 K/uL (130-400) Mean Platelet Volume 9.4 fL (7.4-10.4) Neutrophils (%) (Auto) 88.5 % Lymphocytes (%) (Auto) 3.8 % Monocytes (%) (Auto) 7.5 % Eosinophils (%) (Auto) 0.0 % Basophils (%) (Auto) 0.0 % Neutrophils # (Auto) 10.60 K/uL (1.4-6.5) Lymphocytes # (Auto) 0.45 K/uL (1.2-3.4) Monocytes # (Auto) 0.90 K/uL (0.11-0.59) Eosinophils # (Auto) 0.00 K/uL (0-0.5) Basophils # (Auto) 0.00 K/uL (0-0.2) RDW Standard Deviation 45.4 fL (36.4-46.3) RDW Coefficient of Variation 13.6 % (11.5-14.5) Immature Granulocyte % (Auto) 0.2 % Immature Granulocyte # (Auto) 0.02 K/uL (0.00-0.02) Anion Gap 8.0 mmol/L (3-11) Est Creatinine Clear Calc Drug Dose 103.6 ml/min Estimated GFR () 108.3 Estimated GFR (Non- 93.5 BUN/Creatinine Ratio 12.8 (10-20) Calcium Level 8.5 mg/dl (8.5-10.1) Total Bilirubin 1.2 mg/dl (0.2-1) Aspartate Amino Transf (AST/SGOT) 34 U/L (15-37) Alanine Aminotransferase (ALT/SGPT) 35 U/L (12-78) Alkaline Phosphatase 75 U/L (45-117) Total Creatine Kinase 782 U/L (39-308) Total Protein 8.1 gm/dl (6.4-8.2) Albumin 4.4 gm/dl (3.4-5.0) Globulin 3.7 gm/dl (2.5-4.0) Albumin/Globulin Ratio 1.2 (0.9-2) Thyroid Stimulating Hormone (TSH) 1.900 uIu/ml (0.300-4.500) Urine Color YELLOW Urine Appearance CLEAR (CLEAR) Urine pH 5.0 (4.5-7.5) Urine Specific [place] 1.020 (1.000-1.030) Urine Protein NEG (NEG) Urine Glucose (UA) NEG (NEG) Urine Ketones 3+ (NEG) Urine Occult Blood TRACE (NEG) Urine Nitrite NEG (NEG) Urine Bilirubin NEG (NEG) Urine Urobilinogen NEG (NEG) Urine Leukocyte Esterase NEG (NEG) Urine WBC (Auto) 1-5 /hpf (0-5) Urine RBC (Auto) 0-4 /hpf (0-4) Urine Hyaline Casts (Auto) 1-5 /lpf (0-5) Urine Epithelial Cells (Auto) 5-10 /lpf (0-5) Urine Bacteria (Auto) NEG (NEG) Urine Opiates Screen NEG (NEG) Urine Methadone, Qualitative POS (NEG) Urine Barbiturates NEG (NEG) Urine Phencyclidine (PCP) Level NEG (NEG) Ur Amphetamine/Methamphetamine NEG (NEG) MDMA (Ecstasy) Screen NEG (NEG) Urine Benzodiazepines Screen NEG (NEG) Urine Cocaine Metabolite NEG (NEG) Urine Marijuana (THC) POS (NEG) Impression Epilepsy, with several breakthrough seizures March 01. This patient has a history of epilepsy since 2007, with different seizure types , including simple partial sensory, complex partial, and generalized tonic- clonic. He is on Keppra but is not overly compliant with the medication. 500 mg twice a day is a rather low dose even if he was compliant. He was increased to 1000 mg by mouth twice a day since admission and has had no seizures since admission. In addition, the patient uses marijuana, opiates such as methadone, and alcohol. All of these substances can lower seizure threshold. Plan 1. I spoke with the patient regarding discontinuing alcohol, marijuana and all other drug use, sleeping regularly, and taking Keppra regularly as prescribed. Doing these things will decrease his risk of seizure. Participating in the will increase his risk of seizures. He seemed to understand but I wasn't certain how motivated he was to comply. 2. Keep Keppra at 1000 mg twice a day. Consideration could be given, as an outpatient, for a long-acting, once per day medication which may help stop seizures better than Keppra. An example could be Lamictal XR once daily 3. I see no reason for additional neurologic testing or treatment at this time. Follow-up with Dr. Hartmann as an outpatient in the next week or 2. I spoke with Dr. Cleary regarding this case including differential diagnosis and treatment options.
[2017-03-02 15:20] VITALS: BP 133/74; PULSE 75; TEMP 36.7; O2SAT 100
[2017-03-02] MEDS ORDERED: KPP/1000 PO (15:36)
--- NOTE | 2017-03-02 15:46 | Discharge Instructions ---
Discharge Instructions Date of Service Mar 02, 2017. Admission Reason for Admission: Head Trauma, Seizure Discharge Discharge Diagnosis / Problem: seizure Discharge Goals Goal(s): Diagnostic testing, Therapeutic intervention Activity Recommendations Activity Limitations: resume your previous activity (no driving) . Instructions / Follow-Up Instructions / Follow-Up while you definitely have a propensity to seize, certain substances, medications , and circumstances make seizing all the more likely: -alcohol unfortunately lowers your seizure threshold, especially when blood alcohol levels are dropping (alcohol withdrawal seizures happen in people who drink too much who've never seized before in their life, so when you have a propensity to have a seizure, "a little can go a long way" as far as alcohol is concerned) -methadone can actually cause seizures as a direct side effect (even listed as such on the pharmaceutical listings) and kind of like alcohol, your brain can also be more irritable when coming down off a methadone high, making a seizure more likely -while i'm not aware of marijuana causing seizures directly, stranger things have happened; also anything bought on the street is always questionable in content and purity (we see people overdosed or toxic all the time who thought they just had "drug X" when also "drugs Y,Z" were mixed in). similarly, i would stay strictly away from all the synthetics (K2, spice, etc) as we see some really ugly neurologic side effects with those. the short story is, you've got a brain that can seize easier than an average person, and the above substances make it all the more likely that a seizure will occur. so please take care of yourself! as far as the keppra - for now we'll have you at 1000mg twice a day - your next dose should be at bedtime tonight (03/02/17). while the increase in dosing might make you groggy, clumsy, or "a step slow" it's not overly likely to do so ; if it happens Dr Hartmann can change your regimen to other anti-seizure meds. when you follow up with him in the office, he'll continue to adjust your regimen to work to keep you from seizing as well as try to have you on a regimen with minimal side effects. we'll want you to follow up with Dr Hartmann in 1-2 weeks. our nurse navigator will be calling saturday to start working on getting your appointment set up. Current Hospital Diet Patient's current hospital diet: Regular Diet Discharge Diet Recommended Diet: Regular Diet Pending Studies Studies pending at discharge: no Medical Emergencies . Who to Call and When: Medical Emergencies: If at any time you feel your situation is an emergency, please call 911 immediately. . Non-Emergent Contact Non-Emergency issues call your: Primary Care Provider, Neurologist . . "Provider Documentation" section prepared by Mick Cleary. . VTE Core Measure Inpt VTE Proph given/why not?: Enoxaparin (Lovenox)SQ
[2017-03-02 16:02] VITALS: BP 133/74; PULSE 75; TEMP 36.7; O2SAT 100
--- NOTE | 2017-03-02 17:49 | Discharge Summary ---
Discharge Summary Date of Service Mar 02, 2017. Discharge Summary Admission Date: Mar 01, 2017 at 13:38 Discharge Date: Mar 02, 2017 Discharge Disposition: Home Principal Diagnosis: seizure Consultations: neurology Medication Reconciliation New Medications: Levetiracetam (Keppra) 1,000 Mg Tab 1 TAB PO BID for 30 Days, #60 TAB 0 Refills Discontinued Medications: Levetiracetam (Keppra) 500 Mg Tab 500 MG PO BID, TAB Discharge Exam Physical Exam: General Appearance: no apparent distress Eyes: EOMI ENT: + pertinent finding (facial abrasions healing) Neck: trachea midline Respiratory/Chest: no respiratory distress, no accessory muscle use Extremities: normal inspection 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 Discharge Instructions Please refer to the electronic Patient Visit Report (Discharge Instructions) for additional information. Additional Copies To Ziggy Hartmann M.D.
[2017-03-06 15:23] LABS: METHADONE METABOLITE 176 NG/ML (CUTOFF=100); METHADONE VERIFIC 344 NG/ML (CUTOFF=100)
== END 2017-03-02 16:20 | disposition home or self-care (01) | DRG 101 ==
LOC: ENRESERVDT → ENRESERVTM → C.EDB 10:20 → C.MS4W 13:38
PROVIDERS: ADMIT Internal Medicine; ATTEND Internal Medicine
DX: G40.909 Epilepsy, unspecified, not intractable, without status epilepticus (principal); S09.90XA Unspecified injury of head, initial encounter; W19.XXXA Unspecified fall, initial encounter; Y92.002 Bathroom of unspecified non-institutional (private) residence as the place of occurrence of the external cause; Z91.14 Patient's other noncompliance with medication regimen; F12.90 Cannabis use, unspecified, uncomplicated; Z72.0 Tobacco use; F11.90 Opioid use, unspecified, uncomplicated; Z72.89 Other problems related to lifestyle; Z79.899 Other long term (current) drug therapy

== ENCOUNTER → 2017-05-10 | Outpatient (CLI) | payer OTHER ==
[~2017-05-10] MED LIST changes: +KPP/1000 PO; -LEVE500T13 PO
== END | disposition home or self-care (01) ==
LOC: C.LAB 12:17
PROVIDERS: ATTEND Physician Assistant
DX: G40.209 Localization-related (focal) (partial) symptomatic epilepsy and epileptic syndromes with complex partial seizures, not intractable, without status epilepticus (principal)

== ENCOUNTER 2017-09-26 15:09 | Emergency (ER) | payer OTHER ==
[~2017-09-26] VITALS: Ht 177.8 cm; Wt 66.8 kg
[2017-09-26] MEDS ORDERED: LEVETIRACETAM 500 MG TAB PO STA (15:25)
[2017-09-26] MEDS ORDERED: KPP/1000 PO (15:26)
--- NOTE | 2017-09-26 15:30 | EMERGENCY ROOM VISIT NOTE ---
History Report prepared by Maryann: Martinez Sarah Under the Supervision of: Dr. Don Fitzgerald M.D. First contact with patient: 15:10 Stated Complaint: AMS History of Present Illness The patient is a 27 year old white male with a past medical history of seizures who presents to the ED with a cc of a resolved seizure that occurred 20 minutes ago. The patient takes 1500mg of Keppra twice a day. Today he was sitting and felt it coming on. After coming to, he was told he was doing weird things and walking around. Last seizure was last week. Patient recently started counseling. Positive loss of consciousness, occasional alcohol use, unstable memory, seizures once a week, hearing loss after seizure. Negative changes in medication, decreased sleep, increased stress, recent travel, abx use, tobacco use, drug use, missing medication doses. 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 Source of History: patient Onset: 20 minutes ago Position: other (global) Quality: other (seizure) Timing: resolved Associated Symptoms: + LOC Note: Associated symptoms: unstable memory, resolved hearing loss Denies: decreased sleep, increased stress, recent travel, abx use Review of Systems See HPI for pertinent positives and negatives. A total of ten systems were reviewed and were otherwise negative. Past Medical & Surgical Medical Problems: (1) Hand laceration (2) Pneumothorax, closed, traumatic (3) Seizure Family History Hypertension Social History Smoking Status: Never Smoker Smokeless Tobacco Use: No Alcohol Use: occasionally Drug Use: none Marital Status: single Housing Status: lives with family Occupation Status: employed Current/Historical Medications Scheduled Levetiracetam (Keppra), 1,500 MG PO BID Allergies Coded Allergies: No Known Allergies (Unverified , 09/26/17) Physical Exam Vital Signs Date Time Temp Pulse Resp B/P (MAP) Pulse Ox O2 Delivery O2 Flow Rate FiO2 09/26/17 16:00 58 09/26/17 15:38 37.0 57 16 145/88 98 Room Air 09/26/17 15:38 98 Room Air Physical Exam GENERAL: Awake, alert, well-appearing, NAD HENT: Normocephalic, atraumatic. EYES: Normal conjunctiva. Sclera non-icteric. NECK: Supple. No nuchal rigidity. FROM. RESPIRATORY: CTAB, no rhonchi, wheezing, crackles CARDIAC: RRR, no MRG ABDOMEN: Soft, NTND, BS+ MSK: No chest wall TTP, no LE edema NEURO: CN 2-12 intact, 5/5 upper and lower extremity strength, no dysmetria, no drift, good finger to nose, no sensory deficits. GCS: 15. A&Ox3. SKIN: No rash or jaundice noted. Medical Decision & Procedures Laboratory Results 09/26/17 16:02 Red Blood Count 4.34, Mean Corpuscular Volume 91.5, Mean Corpuscular Hemoglobin 30.9, Mean Corpuscular Hemoglobin Concent 33.8, Mean Platelet Volume 9.8, Neutrophils (%) (Auto) 70.1, Lymphocytes (%) (Auto) 22.8, Monocytes (%) (Auto) 5.7, Eosinophils (%) (Auto) 1.0, Basophils (%) (Auto) 0.2, Neutrophils # (Auto) 3.44, Lymphocytes # (Auto) 1.12, Monocytes # (Auto) 0.28, Eosinophils # (Auto) 0.05, Basophils # (Auto) 0.01 09/26/17 16:02 Test 09/26/17 16:02 White Blood Count 4.91 K/uL (4.8-10.8) Red Blood Count 4.34 M/uL (4.7-6.1) Hemoglobin 13.4 g/dL (14.0-18.0) Hematocrit 39.7 % (42-52) Mean Corpuscular Volume 91.5 fL (80-100) Mean Corpuscular Hemoglobin 30.9 pg (25-34) Mean Corpuscular Hemoglobin Concent 33.8 g/dl (32-36) Platelet Count 180 K/uL (130-400) Mean Platelet Volume 9.8 fL (7.4-10.4) Neutrophils (%) (Auto) 70.1 % Lymphocytes (%) (Auto) 22.8 % Monocytes (%) (Auto) 5.7 % Eosinophils (%) (Auto) 1.0 % Basophils (%) (Auto) 0.2 % Neutrophils # (Auto) 3.44 K/uL (1.4-6.5) Lymphocytes # (Auto) 1.12 K/uL (1.2-3.4) Monocytes # (Auto) 0.28 K/uL (0.11-0.59) Eosinophils # (Auto) 0.05 K/uL (0-0.5) Basophils # (Auto) 0.01 K/uL (0-0.2) RDW Standard Deviation 43.2 fL (36.4-46.3) RDW Coefficient of Variation 12.9 % (11.5-14.5) Immature Granulocyte % (Auto) 0.2 % Immature Granulocyte # (Auto) 0.01 K/uL (0.00-0.02) Prothrombin Time 10.4 SECONDS (9.0-12.0) Prothromb Time International Ratio 1.0 (0.9-1.1) Activated Partial Thromboplast Time 25.7 SECONDS (21.0-31.0) Partial Thromboplastin Ratio 1.0 Anion Gap 7.0 mmol/L (3-11) Est Creatinine Clear Calc Drug Dose 110.0 ml/min Estimated GFR () 125.2 Estimated GFR (Non- 108.1 BUN/Creatinine Ratio 9.3 (10-20) Calcium Level 9.0 mg/dl (8.5-10.1) Phosphorus Level 3.2 mg/dl (2.5-4.9) Magnesium Level 2.2 mg/dl (1.8-2.4) Thyroid Stimulating Hormone (TSH) 0.615 uIu/ml (0.300-4.500) Laboratory results reviewed by me Medications Administered Medications (Trade) Dose Ordered Sig/Bobbi Route Start Time Stop Time Status Last Admin Dose Admin Levetiracetam (Keppra Tab) 1,000 mg ONE STAT PO 09/26/17 15:25 09/26/17 15:28 DC 09/26/17 16:06 1,000 MG ECG Indication: other (seizure) Rate (beats per minute): 58 Rhythm: sinus bradycardia Findings: T-wave inversion (single isolated TWI in lead III, not contiguous, no other STS or TWI), other (Normal axis, normal interval) ED Course 1517: The patient was evaluated in room C06. A complete history and physical exam was performed. 1: I discussed the patient's case with Dr. Mccann, Neurology. He suggested the patient call the office tomorrow and schedule a follow-up appointment. 1727: I reevaluated the patient. Discussed results and discharge instructions: he verbalized understanding and agreement. The patient is ready for discharge. Medical Decision The patient is a 27 year old white male with a past medical history of seizures who presents to the ED with a cc of a resolved seizure that occurred 20 minutes ago. Differential diagnoses include: metabolic, infection, hypoglycemia, electrolyte abnormalities, cardiac sources, intracerebral event, toxicologic, neurologic, as well as others were entertained. Patient was seen and evaluated the bedside. Patient is very well-appearing. Patient purportedly had a seizure while he was [facility] at approximately 3 PM. Patient apparently stated that he had no aura where he felt it starting in his leg and then apparently was walking around was very confused this occurred for an unknown amount of time. This is atypical in its presentation. Patient denies any fevers or chills. Patient denies any increased stress or decrease the. Patient does admit using alcohol 2 nights ago. Patient does not use any stimulants or drugs. Patient has been eating and drinking well. Patient denies any other infectious symptoms. On exam patient has a normal neurologic exam is a and O 3 with GCS 15. Patient does have seizures approximately one time per week. He does take 1250 year 1500 mg of Keppra twice a day. The recent changes in his medications. Patient does see [place] neuro. POC glucose was 100. The patient's blood work was fairly unremarkable. A CT of the brain was not performed given the patient's neurologic exam is unremarkable. Patient has no signs of meningismus. Patient is afebrile vital signs are stable. Patient was loaded with 1 g of Keppra. Patient does have a Keppra level that is pending. I did speak with the on-call neurologist who stated that he needs to call the office tomorrow for an appointment and discuss may be additional antiepileptic medications as his seizure frequency while unchanged is still continuing at 1 time per week. Patient was informed of all these findings and additional follow -up. Patient was given return precautions. All questions were answered. Patient was given strict follow-up, discharge, and return precautions. All questions were answered. Patient was deemed suitable for outpatient follow-up at this time. Patient agreed with the plan of care and was safely discharged home. Head Trauma GCS Score: 15 Consults Time Called: 1648 Consulting Physician: Dr. Mccann, Neurology Returned Call: [phone] I discussed the patient's case with Dr. Mccann, Neurology. He suggested the patient call the office tomorrow and schedule a follow-up appointment. Impression Primary Impression: Seizure Scribe Attestation The scribe's documentation has been prepared under my direction and personally reviewed by me in its entirety. I confirm that the note above accurately reflects all work, treatment, procedures, and medical decision making performed by me. Departure Information Dispostion Home / Self-Care Referrals Ziggy Hartmann M.D. Forms HOME CARE DOCUMENTATION FORM, IMPORTANT VISIT INFORMATION, WORK / SCHOOL INSTRUCTIONS Patient Instructions Epilepsy Safety During Seizure, Epilepsy Seizures, My [facility] Additional Instructions Please return to the emergency department if you have worsening or recurrent symptoms not amenable to at-home treatment. Please call for a follow-up appointment with her primary care physician. Please take your medications as prescribed. If you have other concerns and/or complaints please feel free to also call your primary care physician's office or return the ED for further evaluation, management, and treatment. You may take 600 mg Ibuprofen every 6 hours as needed for pain with food for no more than 2 consecutive days. You may take tylenol 1000 mg every 6 hours as needed for pain. You may take motrin and tylenol separately or at the same time. Please do not drive and discuss with your neurologist when you may return to driving. Take your medications as prescribed. If taking an antibiotic consider taking a probiotic and/or eating yogurt, but at the least, please take with food as it can cause upset stomach. You have been examined and treated today on an emergency basis only. This is not a substitute for, or an effort to provide, complete comprehensive medical care. It is impossible to recognize and treat all injuries or illnesses in a single emergency department visit. It is therefore important that you follow up closely with [facility], your PCP, and/or your specialist(s). Call as soon as possible for an appointment. Thank you for your time and consideration. I look forward to speaking with you again soon. Please don't hesitate to call us if you have any questions.
[2017-09-26 15:38] VITALS: O2SAT 98; Ht 177.8 cm; Wt 66.8 kg
[2017-09-26 16:21] LABS: BASO % 0.2 %; BASO ABS # 0.01 K/uL (0-0.2); COMPLETE YES; HEMATOCRIT 39.7 % (42-52); IG% 0.2 %; LYMPH % 22.8 %; LYMPH ABS # 1.12 K/uL (1.2-3.4); MEAN CELL VOLUME 91.5 fL (80-100); MEAN CORPUSCULAR HEMOGLOBIN 30.9 pg (25-34); MEAN CORPUSCULAR HGB CONC 33.8 g/dl (32-36); MEAN PLATELET VOLUME 9.8 fL (7.4-10.4); MONO % 5.7 %; NEUT % 70.1 %; PLATELET COUNT 180 K/uL (130-400); RED BLOOD COUNT 4.34 M/uL (4.7-6.1); WHITE BLOOD COUNT 4.91 K/uL (4.8-10.8)
[2017-09-26 16:36] LABS: PROTHROMBIN TIME (PATIENT) 10.4 SECONDS (9.0-12.0)
[2017-09-26 16:45] LABS: BUN/CREATININE RATIO 9.3 (10-20); CREATININE 0.97 mg/dl (0.60-1.40); MAGNESIUM 2.2 mg/dl (1.8-2.4); POTASSIUM 4.1 mmol/L (3.5-5.1)
[2017-09-26 16:55] LABS: PHOSPHORUS 3.2 mg/dl (2.5-4.9); THYROID STIMULATING HORMONE 0.615 uIu/ml (0.300-4.500)
[2017-09-26 17:59] VITALS: BP 145/88; PULSE 58; TEMP 37; O2SAT 98
== END 2017-09-26 18:00 | disposition home or self-care (01) ==
LOC: EDBD 15:09 → C.EDC 15:10
DX: R56.9 Unspecified convulsions (principal); Z82.49 Family history of ischemic heart disease and other diseases of the circulatory system; Z79.899 Other long term (current) drug therapy

== ENCOUNTER 2017-12-04 18:33 | Emergency (ER) | payer OTHER ==
[~2017-12-04] VITALS: Ht 177.8 cm; Wt 74.1 kg
[2017-12-04 18:51] VITALS: TEMP 36.6; Ht 177.8 cm; Wt 74.1 kg
[2017-12-04] MEDS ORDERED: SULFAMETHOXAZOLE/TRIMETHOPRIM DS 800/160MG TAB PO STA (19:30)
[2017-12-04] MEDS ORDERED: CEFTRIAXONE SOD INJ 1 GM ADDVIAL IV STA (19:30)
--- NOTE | 2017-12-04 19:34 | EMERGENCY ROOM VISIT NOTE ---
History Report prepared by Maryann: Shelley Pedersen Under the Supervision of: Dr. Félix Flores M.D. First contact with patient: 19:25 Chief Complaint: HAND PAIN/INJURY Stated Complaint: RT SWOLLEN HAND History of Present Illness The patient is a 27 year old male who presents to the Emergency Room with complaints of worsening right hand swelling that began one week ago. The patient states that he only feels pain after he uses his hand at work. He denies any pain with exertion. The patient denies any trauma to his hand. He notes that he takes Keppra for seizures. Source of History: patient Onset: one week ago Position: arm (right) Quality: other (hand swelling) Timing: other (persistent) Review of Systems See HPI for pertinent positives & negatives. A total of 10 systems reviewed and were otherwise negative. Past Medical & Surgical Medical Problems: (1) Hand laceration (2) Pneumothorax, closed, traumatic (3) Seizure Family History Hypertension Social History Smoking Status: Never Smoker Alcohol Use: occasionally Drug Use: none Marital Status: single Housing Status: lives with family Occupation Status: employed Current/Historical Medications Scheduled Cephalexin Monohydrate (Keflex), 1 CAP PO QID Levetiracetam (Keppra), 1,500 MG PO BID Sulfa/Trimethoprim (Bactrim Ds 800MG/160MG), 1 TAB PO BID Allergies Coded Allergies: No Known Allergies (Unverified , 09/26/17) Physical Exam Vital Signs Date Time Temp Pulse Resp B/P (MAP) Pulse Ox O2 Delivery O2 Flow Rate FiO2 12/04/17 22:01 78 18 121/85 99 12/04/17 18:51 36.6 75 18 152/92 96 Room Air Physical Exam GENERAL: Patient is a healthy-appearing well-nourished [] HEAD: Normocephalic atraumatic EYES: Ocular movements intact pupils equal and react to light OROPHARYNX mucous membranes are moist no exudates present no erythema or edema present NECK: Supple no nuchal rigidity CHEST: Good equal expansion LUNGS: Clear and equal to auscultation CARDIAC: Normal S1 and S2 ABDOMEN: Soft nontender no guarding BACK: No CVA tenderness EXTREMITIES: Right hand grossly swollen, no signs of cellulitis, no tenosynovitis NEURO: Patient is following commands and answering questions appropriately. Alert and oriented x3 Cranial Nerves 2-12 grossly intact Medical Decision & Procedures ER Provider Diagnostic Interpretation: Radiology results as stated below per my review and radiologist interpretation: RIGHT HAND 3 VIEWS CLINICAL HISTORY: Hand swelling. FINDINGS: 3 views of the right hand are compared to study dated 04/30/2011. The skeletal structures are well mineralized. No fracture is seen. A chronic lucency is again seen through the fused lunate/triquetrum. This was also seen in the 2010 examination. The joint spaces of the hand are well-maintained. Dorsal soft tissue edema is noted in the hand. IMPRESSION: 1. Soft tissue swelling with no acute bony abnormality identified in the right hand. 2. Chronic lucency is again seen through the fused lunate/triquetrum. This was also seen in 2010. Electronically signed by: Kevin Waldron M.D. 12/04/2017 8:29 PM Dictated Date/Time: 12/04/2017 8:26 PM ULTRASOUND RIGHT UPPER EXTREMITY VENOUS CLINICAL HISTORY: Right hand swelling. COMPARISON STUDY: No priors. TECHNIQUE: Real-time, grayscale, and color Doppler sonography of the deep veins of the right upper extremity is performed. Compression and augmentation were utilized. FINDINGS: There is no sonographic evidence of deep venous thrombosis identified in the right upper extremity. The right internal jugular, axillary, and brachial veins are patent and normally compressible. Normal venous waveforms and augmentation are seen within the right subclavian vein. The cephalic and basilic veins are clear. The visualized radial and ulnar veins are patent. IMPRESSION: There is no sonographic evidence of deep venous thrombosis identified in the right upper extremity. Electronically signed by: Kevin Waldron M.D. 12/04/2017 9:38 PM Dictated Date/Time: 12/04/2017 9:37 PM Laboratory Results 12/04/17 19:50 Red Blood Count 4.34, Mean Corpuscular Volume 90.1, Mean Corpuscular Hemoglobin 30.4, Mean Corpuscular Hemoglobin Concent 33.8, Mean Platelet Volume 9.8, Neutrophils (%) (Auto) 64.6, Lymphocytes (%) (Auto) 26.4, Monocytes (%) (Auto) 7.2, Eosinophils (%) (Auto) 1.1, Basophils (%) (Auto) 0.3, Neutrophils # (Auto) 4.79, Lymphocytes # (Auto) 1.95, Monocytes # (Auto) 0.53, Eosinophils # (Auto) 0.08, Basophils # (Auto) 0.02 12/04/17 19:50 Test 12/04/17 19:50 12/04/17 20:00 White Blood Count 7.40 K/uL (4.8-10.8) Red Blood Count 4.34 M/uL (4.7-6.1) Hemoglobin 13.2 g/dL (14.0-18.0) Hematocrit 39.1 % (42-52) Mean Corpuscular Volume 90.1 fL (80-100) Mean Corpuscular Hemoglobin 30.4 pg (25-34) Mean Corpuscular Hemoglobin Concent 33.8 g/dl (32-36) Platelet Count 222 K/uL (130-400) Mean Platelet Volume 9.8 fL (7.4-10.4) Neutrophils (%) (Auto) 64.6 % Lymphocytes (%) (Auto) 26.4 % Monocytes (%) (Auto) 7.2 % Eosinophils (%) (Auto) 1.1 % Basophils (%) (Auto) 0.3 % Neutrophils # (Auto) 4.79 K/uL (1.4-6.5) Lymphocytes # (Auto) 1.95 K/uL (1.2-3.4) Monocytes # (Auto) 0.53 K/uL (0.11-0.59) Eosinophils # (Auto) 0.08 K/uL (0-0.5) Basophils # (Auto) 0.02 K/uL (0-0.2) RDW Standard Deviation 43.1 fL (36.4-46.3) RDW Coefficient of Variation 13.1 % (11.5-14.5) Immature Granulocyte % (Auto) 0.4 % Immature Granulocyte # (Auto) 0.03 K/uL (0.00-0.02) Anion Gap 7.0 mmol/L (3-11) Est Creatinine Clear Calc Drug Dose 115.4 ml/min Estimated GFR () 119.3 Estimated GFR (Non- 102.9 BUN/Creatinine Ratio 15.3 (10-20) Calcium Level 8.8 mg/dl (8.5-10.1) Labs reviewed by ED physician. Medications Administered Medications (Trade) Dose Ordered Sig/Bobbi Route Start Time Stop Time Status Last Admin Dose Admin Ceftriaxone Sodium (Rocephin Inj) 1 gm NOW STAT IV 12/04/17 19:30 12/04/17 19:34 DC 12/04/17 19:58 1 GM Trimethoprim/ Sulfamethoxazole (Septra Ds 800/ 160MG Tab) 1 tab NOW STAT PO 12/04/17 19:30 12/04/17 19:34 DC 12/04/17 19:58 1 TAB ED Course 1925: Past medical records reviewed. The patient was evaluated in room C7. A complete history and physical examination was performed. 1929: Order Rocephin Inj 1gm IV and Septra Ds 800/160MG Tab 1 tab PO. 2015: I reevaluated the patient, who is resting comfortably. I discussed some test findings. 2150: Upon reexamination the patient is feeling significantly better. I discussed results and treatment plan with the patient. He verbalizes agreement and understanding. The patient is ready for discharge. Medical Decision Differential diagnosis: Etiologies such as cellulitis, abscess, MRSA infection, DVT, necrotizing fasciitis, dermatitis, drug eruption, as well as others were entertained. This is a 27-year-old male who presents emergency department complaining of right hand swelling. The patient denies any pain on examination and based on this finding I felt that the patient can be conservatively treated. An IV was established, the patient was given IV Rocephin and started on Bactrim. Patient has good range of motion of his fingers free from pain. He has no evidence of DVT on ultrasound and hand x-ray does not show any acute process. I stressed the need for follow-up with orthopedics. Patient was in agreement with the treatment plan. Medication Reconcilliation Current Medication List: was personally reviewed by me Blood Pressure Screening Patient's blood pressure: Normal blood pressure Impression Primary Impression: Hand swelling Scribe Attestation The scribe's documentation has been prepared under my direction and personally reviewed by me in its entirety. I confirm that the note above accurately reflects all work, treatment, procedures, and medical decision making performed by me. Departure Information Dispostion Home / Self-Care Prescriptions Sulfa/Trimethoprim (Bactrim Ds 800MG/160MG) Tab 1 TAB PO BID for 10 Days, #20 TAB Prov: Félix Flores MD 12/04/17 Cephalexin Monohydrate (Keflex) 500 Mg Cap 1 CAP PO QID for 10 Days, #40 CAP Prov: Félix Flores MD 12/04/17 Referrals No Doctor, Assigned (PCP) Forms HOME CARE DOCUMENTATION FORM, IMPORTANT VISIT INFORMATION Patient Instructions My [facility] Additional Instructions Need follow up with DR Mondragon's office Return if you develop severe pain or fevers Culture results are usually available in approx 48 hours You have been examined and treated today on an emergency basis only. This is not a substitute for, or an effort to provide, complete comprehensive medical care. It is impossible to recognize and treat all injuries or illnesses in a single emergency department visit. It is therefore important that you follow up closely with your PCP. Call as soon as possible for an appointment. Thank you for your time and consideration. I look forward to speaking with you again soon. Please don't hesitate to call us if you have any questions. Problem Qualifiers Primary Impression: Hand swelling Laterality: right Qualified Codes: M79.89 - Other specified soft tissue disorders
[2017-12-04 20:17] LABS: BASO % 0.3 %; BASO ABS # 0.02 K/uL (0-0.2); EOS % 1.1 %; EOS ABS # 0.08 K/uL (0-0.5); HEMATOCRIT 39.1 % (42-52); HEMOGLOBIN 13.2 g/dL (14.0-18.0); IG# 0.03 K/uL (0.00-0.02); LYMPH % 26.4 %; LYMPH ABS # 1.95 K/uL (1.2-3.4); MEAN CELL VOLUME 90.1 fL (80-100); MEAN CORPUSCULAR HEMOGLOBIN 30.4 pg (25-34); MEAN CORPUSCULAR HGB CONC 33.8 g/dl (32-36); MEAN PLATELET VOLUME 9.8 fL (7.4-10.4); MONO % 7.2 %; MONO ABS # 0.53 K/uL (0.11-0.59); NEUT % 64.6 %; NEUT ABS # 4.79 K/uL (1.4-6.5); PLATELET COUNT 222 K/uL (130-400); RED CELL DISTRIBUTION WIDTH CV 13.1 % (11.5-14.5); RED CELL DISTRIBUTION WIDTH SD 43.1 fL (36.4-46.3)
--- NOTE | 2017-12-04 20:31 | DIAGNOSTIC IMAGING REPORT ---
RIGHT HAND 3 VIEWS CLINICAL HISTORY: Hand swelling. FINDINGS: 3 views of the right hand are compared to study dated 04/30/2011. The skeletal structures are well mineralized. No fracture is seen. A chronic lucency is again seen through the fused lunate/triquetrum. This was also seen in the 2011 examination. The joint spaces of the hand are well-maintained. Dorsal soft tissue edema is noted in the hand. IMPRESSION: 1. Soft tissue swelling with no acute bony abnormality identified in the right hand. 2. Chronic lucency is again seen through the fused lunate/triquetrum. This was also seen in 2011. Electronically signed by: Kevin Waldron M.D. 12/04/2017 8:29 PM Dictated Date/Time: 12/04/2017 8:26 PM
[2017-12-04 20:34] LABS: CALCIUM 8.8 mg/dl (8.5-10.1); CREATININE 1.01 mg/dl (0.60-1.40); POTASSIUM 3.6 mmol/L (3.5-5.1)
--- NOTE | 2017-12-04 21:39 | DIAGNOSTIC IMAGING REPORT ---
ULTRASOUND RIGHT UPPER EXTREMITY VENOUS CLINICAL HISTORY: Right hand swelling. COMPARISON STUDY: No priors. TECHNIQUE: Real-time, grayscale, and color Doppler sonography of the deep veins of the right upper extremity is performed. Compression and augmentation were utilized. FINDINGS: There is no sonographic evidence of deep venous thrombosis identified in the right upper extremity. The right internal jugular, axillary, and brachial veins are patent and normally compressible. Normal venous waveforms and augmentation are seen within the right subclavian vein. The cephalic and basilic veins are clear. The visualized radial and ulnar veins are patent. IMPRESSION: There is no sonographic evidence of deep venous thrombosis identified in the right upper extremity. Electronically signed by: Kevin Waldron M.D. 12/04/2017 9:38 PM Dictated Date/Time: 12/04/2017 9:37 PM
[2017-12-04] MEDS ORDERED: SULF800T23 PO (21:44)
[2017-12-04] MEDS ORDERED: CEPH500C PO (21:44)
[2017-12-04 22:01] VITALS: BP 121/85; PULSE 78; O2SAT 99
== END 2017-12-04 22:03 | disposition home or self-care (01) ==
LOC: C.EDB 18:35 → C.EDC 22:03
DX: M79.89 Other specified soft tissue disorders (principal); R56.9 Unspecified convulsions; Z82.49 Family history of ischemic heart disease and other diseases of the circulatory system